=== PATIENT | female | born 1940 | race Caucasian/White ===

== ENCOUNTER → 2016-09-30 16:15 | Outpatient (CLI) | payer MEDICARE, OTHER ==
[2015-06-01 10:37] VITALS: BMI 21.1
[~2016-09-30 16:15] MED LIST: AMBIEN5 MG PO; CALTRATE 600 M600 M1 PO; MULTIPLE VITAMI1 TA1 PO; PREMARIN0.3 MG PO; SYNTHROID75 MCG PO; VITAMIN B COMPL1 TAB PO; VITAMIN D50000 UNIT PO
[2016-09-30 16:33] LABS: BASOPHILS 0.6 % (0-2); HEMATOCRIT 37.7 % (36.0-48.0); HEMOGLOBIN 12.8 g/dL (12-16); IMMATURE GRANULOCYTES 0.3 % (0-5); LYMPHOCYTES 30.4 % (15-50); MCH 30.8 pg (26.0-34.0); MCV 90.8 fL (80.0-100.0); MEAN PLATELET VOLUME 9.3 fL (7.4-10.4); MONOCYTES 8.8 % (2-11); NEUTROPHILS 58.9 % (40-80); RBC 4.15 10x6/uL (4.00-5.40); RDW 12.9 % (11.5-14.5); WBC 7.9 10x3/uL (4.8-10.8)
[2016-09-30 17:08] LABS: PLATELET COUNT 257 10x3/uL (130-400)
[2016-09-30 17:38] LABS: ERYTHROCYTE SEDIMENTATION RATE 9 mm/hr (0-30)
== END | disposition home or self-care (01) ==
LOC: D.LAB 16:00 → D.CT 16:30
PROVIDERS: Internal Medicine Gastroenterology
DX: R10.9 Unspecified abdominal pain (principal)

== ENCOUNTER → 2016-10-01 17:10 | Outpatient (CLI) | payer MEDICARE, OTHER ==
[2015-06-01 10:37] VITALS: BMI 21.1
== END | disposition home or self-care (01) ==
LOC: D.MAMMO 14:45
DX: Z12.31 Encounter for screening mammogram for malignant neoplasm of breast (principal)

== ENCOUNTER → 2017-11-26 21:49 | Outpatient (CLI) | payer MEDICARE, OTHER ==
[2015-06-01 10:37] VITALS: BMI 21.1
== END | disposition home or self-care (01) ==
LOC: D.MAMMO 15:45
DX: Z12.31 Encounter for screening mammogram for malignant neoplasm of breast (principal)

== ENCOUNTER → 2019-12-07 13:19 | Outpatient (CLI) | payer MEDICARE, OTHER ==
[2015-06-01 10:37] VITALS: BMI 21.1
== END | disposition home or self-care (01) ==
LOC: D.MRI 12-06 14:30
PROVIDERS: ATTEND Orthopaedic Surgery
DX: M17.12 Unilateral primary osteoarthritis, left knee (principal); M25.462 Effusion, left knee; M25.562 Pain in left knee